=== PATIENT | male | born 1960 | race Caucasian/White ===

== ENCOUNTER 2021-03-22 12:58 | Outpatient (CLI) | payer SELFPAY ==
[~2021-03-22] VITALS: Ht 190.5 cm; Wt 95.5 kg
[2021-03-22 13:05] VITALS: BP 146/82
[2021-03-22 15:48] LABS: AMYLASE,BODY FLUID 10 U/L; TOTAL PROTEIN,BODY FLUID 1.6 G/DL
[2021-03-22 15:51] LABS: LDH,BODY FLUID 65 U/L
[2021-03-22 17:34] LABS: BODY FLUID APPEARENCE MOD CLDY; BODY FLUID COLOR YELLOW; BODY FLUID SOURCE PERITON
[2021-03-22 17:35] LABS: BF OTHER CELLS 52 %; BODY FLUID RBC COUNT 1800 /uL; BODY FLUID WBC TOTAL COUNT 38 /uL; LYMPHOCYTES,BODY FLUID 27 %
--- NOTE | 2021-03-22 18:33 | OPERATIVE REPORT ---
DATE OF SERVICE: 03/22/2021 ATTENDING PRIMARY CARE PHYSICIAN: Rachna Grier MD PREOPERATIVE DIAGNOSIS: Symptomatic ascites. POSTOPERATIVE DIAGNOSIS: Symptomatic ascites. PROCEDURE: Paracentesis under ultrasound guidance. SURGEON: Jes Pierce MD ANESTHESIA: Local. ESTIMATED BLOOD LOSS: Minimal. FINDINGS: A straw yellow transudative fluid. DISPOSITION: The patient tolerated the procedure well. INDICATIONS: The patient is a 60-year-old male, who presented to his physician's office with significant abdominal distention, which has been occurring for the past few weeks. He was also found to have significant skin jaundice as well as scleral icterus and labs were drawn, which did show an elevation of total bilirubin around 7.5. An ultrasound was performed and marked where a significant amount of ascites was located. However, the liver did show macronodular changes consistent with liver cirrhosis. Upon further questioning, he does report drinking on a daily basis for the past 40 years. DESCRIPTION OF PROCEDURE: The abdomen was prepped and draped in standard surgical fashion. A 1% lidocaine was used to anesthetize the skin, subcutaneous tissue, muscle layers as well as the peritoneal lining. A vertical skin incision was made using 11 blade and the catheter and trocar were then introduced withdrawing of straw yellow transudative fluid. Catheter was then advanced over the trocar and the trocar removed. The catheter was then connected to tubing and to a gravity drainage bag. The catheter was then cleaned and covered with gauze followed by Op-Site. Fluid was sent for cytology as well as laboratory panel. The patient tolerated the procedure well. Once the patient is significantly less symptomatic. We will instruct the staff to remove the catheter and to apply Dermabond to the wound. We will then await the labs as well as cytology results. Job ID: [id number] DocumentID: [id number] Dictated Date: 03/22/2021 14:09:57 Private Investigator Date: 03/22/2021 18:32:17 Dictated By: JES PIERCE MD
--- NOTE | 2021-03-22 20:44 | OPERATIVE REPORT ---
DATE OF SERVICE: 03/22/2021 ATTENDING PRIMARY CARE PHYSICIAN: Dr. Rachna Grier. PREPROCEDURE DIAGNOSIS: Symptomatic ascites. POSTPROCEDURE DIAGNOSIS: Symptomatic ascites. PROCEDURE: Paracentesis under ultrasound guidance. SURGEON: Jes Pierce MD ANESTHESIA: Local. ESTIMATED BLOOD LOSS: Minimal. FINDINGS: Approximately 6 liters of transudative fluid. DISPOSITION: The patient tolerated the procedure well. INDICATIONS: The patient is a 60-year-old male who presented to [facility] with abdominal distention and pain and was found to have ascites on ultrasound and marked. He was then seen in the office and scheduled for a paracentesis. He does have a long history of alcohol abuse and does drink several drinks on a daily basis for the past 40 years. The marking it was in the right lower abdominal quadrant and the abdomen was prepped and draped in standard surgical fashion. Skin, subcutaneous tissue, muscle layers as well as the peritoneal lining were anesthetized using 1% lidocaine. A vertical skin incision was made using an 11 blade and the trocar and catheter were then introduced withdrawing of yellow transudative fluid. The catheter was then advanced over the trocar connected to tubing and gravity drainage bag with copious amounts of drainage. The catheter was then cleaned and covered with sterile gauze followed by large Op-Site. The patient tolerated the procedure well. We will continue the drainage until patient is less symptomatic and decompressed and the catheter will then be removed. Job ID: [id number] DocumentID: [id number] Dictated Date: 03/22/2021 17:41:33 Sole Ruffer Date: 03/22/2021 20:42:59 Dictated By: JES PIERCE MD
== END 2021-03-22 15:05 | disposition home or self-care (01) ==
LOC: SDC 12:58
PROVIDERS: ATTEND Surgery
DX: R18.8 Other ascites (principal)
CPT/HCPCS: 49082; 82150; 83615; 84157; 87070; 87075; 87205; 89051

== ENCOUNTER 2021-04-05 10:52 | Outpatient (CLI) | payer SELFPAY ==
[2021-04-05 11:00] VITALS: BP 130/66
--- NOTE | 2021-04-05 13:15 | Progress Note-Post Operative ---
Post-Operative Progess Note Surgeon (s)/Respiratory Therapist (s) Surgeon FLORIN FREGOSO DO Respiratory Therapist: none Pre-Operative Diagnosis Ascites Post-Operative Diagnosis same Procedure & Operative Findings Date of Procedure 04/05/21 Procedure Performed/Findings Paracentesis with US The patient was in same day surgery room. The abdomen was then prepped and draped and timeout was performed. I used the US to make sure there was a large pocket of fluid in the LLQ. Local anesthetic was then infiltrated and #11 blade scalpel was used to make a small skin incision. [id number]-[id number] needle and catheter were then advanced until straw-colored fluid was withdrawn. The catheter was advanced and the needle was removed. A total of 4.5 L of straw-colored fluid was withdrawn. Once done draining, the catheter was removed and sterile bandage was applied. The patient tolerated procedure well without any complications. Anesthesia Type local lidocaine Estimated Blood Loss Estimated blood loss (mL): none Specimens/Packing Specimens Removed ascitic fluid FLORIN FREGOSO DO Apr 05, 2021 13:15
== END 2021-04-05 12:30 | disposition home or self-care (01) ==
LOC: SDC 10:52
PROVIDERS: ATTEND Surgery
DX: R18.8 Other ascites (principal)
CPT/HCPCS: 49082

== ENCOUNTER 2021-04-15 12:10 | Outpatient (CLI) | payer SELFPAY ==
[2021-04-15 13:30] VITALS: BP 140/82
--- NOTE | 2021-04-15 15:26 | Progress Note-Post Operative ---
Post-Operative Progess Note Surgeon (s)/Time Study Technologist (s) Surgeon FLORIN FREGOSO DO Time Study Technologist: none Pre-Operative Diagnosis Ascites Post-Operative Diagnosis same Procedure & Operative Findings Date of Procedure 04/15/21 Procedure Performed/Findings Paracentesis with US The patient was in same day surgery room. The abdomen was then prepped and draped and timeout was performed. I used the US to make sure there was a large pocket of fluid in the LLQ. Local anesthetic was then infiltrated and #11 blade scalpel was used to make a small skin incision. [id number]-[id number] needle and catheter were then advanced until straw-colored fluid was withdrawn. The catheter was advanced and the needle was removed. A total of 4.3 L of straw-colored fluid was withdrawn. Once done draining, the catheter was removed and sterile bandage was applied. The patient tolerated procedure well without any complications. Anesthesia Type Local lidocaine Estimated Blood Loss Estimated blood loss (mL): scant Specimens/Packing Specimens Removed 4300ml of Ascitic fluid FLORIN FREGOSO DO Apr 15, 2021 15:26
== END 2021-04-15 14:00 ==
LOC: SDC 12:10
PROVIDERS: ATTEND Surgery
DX: R18.8 Other ascites (principal)
CPT/HCPCS: 49082

== ENCOUNTER 2021-05-24 10:54 | Emergency (ER) | payer SELFPAY ==
[~2021-05-24] VITALS: Ht 185 cm; Wt 62.0 kg
[2021-05-24] MEDS ORDERED: NS IV 1000 ML 1,000 ML IV SCH ×2 (11:15→18:45)
--- NOTE | 2021-05-24 11:18 | ED Neurological Problem ---
General Stated Complaint: AMS Source: patient, spouse Exam Limitations: no limitations History of Present Illness Date Seen by Provider: May 24, 2021 Time Seen by Provider: 11:00 Initial Comments Patient to the ER by EMS from home with chief complaint of altered mental status, jaundice and history of liver failure. His states for the past several months he is known to have alcoholism derived hepatic failure and has been jaundiced. He has some more testing to be initiated by a GI doctor at in July. He has had 3 paracentesis in the recent past. He is on lactulose but not as rifaximin. No fevers or chills. He took an aspirin this morning in addition to his fluoxetine, furosemide for pain across the top of his belly. No history of pancreatitis. He used to drink about 1/5 of vodka a day but he quit in March. He does not use recreational drugs. No history of pancreatitis. No lactulose today. He had a last bowel movement yesterday. He is never been hospitalized for encephalopathy. He is typically ambulating under his own power, conversational, etc. Known to DR Zeinab INFANTE at [facility]. Allergies and Home Medications Allergies Coded Allergies: No Known Drug Allergies (Unverified , 05/24/21) Patient Home Medication List Home Medication List Reviewed: Yes Review of Systems Review of Systems Constitutional: No chills, No diaphoresis Eyes: Denies Blindness, Denies Blurred Vision Ears, Nose, Mouth, Throat: denies ear pain, denies ear discharge Respiratory: No cough, No short of breath Cardiovascular: No chest pain, No edema Gastrointestinal: abdominal pain; No constipation, No diarrhea; jaundice; No nausea, No vomiting Genitourinary: No discharge, No dysuria Musculoskeletal: No back pain, No joint pain All Other Systems Reviewed Negative Unless Noted: Yes Past Hlfobgj-Hcipvk-Nzwnlu Hx Patient Social History Tobacco Use?: No Use of E-Cig and/or Vaping dev: No Substance use?: No Alcohol Use?: Yes Alcohol type: Hard Liquor (Quit in March 2021) Physical Exam Vital Signs Vital Signs - First Documented 05/24/21 11:02 Temp 36.9 Pulse 102 Resp 18 B/P (MAP) 130/64 (86) Pulse Ox 100 Capillary Refill : Height, Weight, BMI Height: '" Weight: lbs. oz. kg; BMI Method: General Appearance: WD/WN, moderate distress HEENT: PERRL/EOMI (4 mm, icteric, symmetric bilateral), TMs normal, pharynx normal Respiratory: lungs clear, normal breath sounds, no respiratory distress, no accessory muscle use Cardiovascular: normal peripheral pulses, regular rate, rhythm Gastrointestinal: normal bowel sounds, non tender, soft Extremities: non-tender, normal inspection, normal capillary refill Neurologic/Psychiatric: alert, normal mood/affect, other (GCS 13) Crainal Nerves: PERRL, other (Icteric, repeats sentences over, does not answer many questions. Is oriented to self only.) Motor/Sensory: no motor deficit, no sensory deficit Skin: warm/dry, jaundice Focused Exam Lactate Level 05/24/21 17:00: Lactic Acid Level 7.53*H Lactic Acid Level Laboratory Tests Test 05/24/21 17:00 Lactic Acid Level 7.53 MMOL/L (0.50-2.00) *H Progress/Results/Core Measures Results/Orders Lab Results Laboratory Tests Test 05/24/21 11:10 05/24/21 11:30 05/24/21 16:29 05/24/21 17:00 Range/Units White Blood Count 7.3 4.3-11.0 10^3/uL Red Blood Count 1.93 L 4.30-5.52 10^6/uL Hemoglobin 7.3 L 13.3-17.7 g/dL Hematocrit 21 L 40-54 % Mean Corpuscular Volume 110 H 80-99 fL Mean Corpuscular Hemoglobin 38 H 25-34 pg Mean Corpuscular Hemoglobin Concent 34 32-36 g/dL Red Cell Distribution Width 16.3 H 10.0-14.5 % Platelet Count 175 130-400 10^3/uL Mean Platelet Volume 9.0 9.0-12.2 fL Immature Granulocyte % (Auto) 1 % Neutrophils (%) (Auto) 69 42-75 % Lymphocytes (%) (Auto) 18 12-44 % Monocytes (%) (Auto) 10 0-12 % Eosinophils (%) (Auto) 1 0-10 % Basophils (%) (Auto) 1 0-10 % Neutrophils # (Auto) 5.0 1.8-7.8 10^3/uL Lymphocytes # (Auto) 1.3 1.0-4.0 10^3/uL Monocytes # (Auto) 0.8 0.0-1.0 10^3/uL Eosinophils # (Auto) 0.0 0.0-0.3 10^3/uL Basophils # (Auto) 0.1 0.0-0.1 10^3/uL Immature Granulocyte # (Auto) 0.1 0.0-0.1 10^3/uL Prothrombin Time 21.6 H 12.2-14.7 SEC INR Comment 1.8 H 0.8-1.4 Activated Partial Thromboplast Time 52 H 24-35 SEC Sodium Level 133 L 135-145 MMOL/L Potassium Level 4.1 3.6-5.0 MMOL/L Chloride Level 107 98-107 MMOL/L Carbon Dioxide Level 11 L 21-32 MMOL/L Anion Gap 15 H 5-14 MMOL/L Blood Urea Nitrogen 28 H 7-18 MG/DL Creatinine 1.01 0.60-1.30 MG/DL Estimat Glomerular Filtration Rate 85 BUN/Creatinine Ratio 28 Glucose Level 116 H 70-105 MG/DL Calcium Level 8.7 8.5-10.1 MG/DL Corrected Calcium 9.7 8.5-10.1 MG/DL Total Bilirubin 12.1 *H 0.1-1.0 MG/DL Aspartate Amino Transf (AST/SGOT) 69 H 5-34 U/L Alanine Aminotransferase (ALT/SGPT) 24 0-55 U/L Alkaline Phosphatase 108 40-136 U/L Ammonia 103 H 11-32 UMOL/L C-Reactive Protein High Sensitivity 3.27 H 0.00-0.50 MG/DL Total Protein 7.3 6.4-8.2 GM/DL Albumin 2.7 L 3.2-4.5 GM/DL Lipase 111 H 8-78 U/L Salicylates Level < 5.0 L 5.0-20.0 MG/DL Acetaminophen Level < 10 L 10-30 UG/ML Serum Alcohol < 10 <10 MG/DL Urine Color YELLOW Urine Clarity CLEAR Urine pH 6.5 5-9 Urine Specific [place] 1.015 L 1.016-1.022 Urine Protein NEGATIVE NEGATIVE Urine Glucose (UA) NEGATIVE NEGATIVE Urine Ketones NEGATIVE NEGATIVE Urine Nitrite NEGATIVE NEGATIVE Urine Bilirubin 1+ H NEGATIVE Urine Urobilinogen >=8.0 < = 1.0 MG/DL Urine Leukocyte Esterase NEGATIVE NEGATIVE Urine RBC (Auto) NEGATIVE NEGATIVE Urine RBC NONE /HPF Urine WBC NONE /HPF Urine Squamous Epithelial Cells RARE /HPF Urine Crystals NONE /LPF Urine Bacteria NEGATIVE /HPF Urine Casts NONE /LPF Urine Mucus NEGATIVE /LPF Urine Culture Indicated NO Urine Opiates Screen NEGATIVE NEGATIVE Urine Oxycodone Screen NEGATIVE NEGATIVE Urine Methadone Screen NEGATIVE NEGATIVE Urine Propoxyphene Screen NEGATIVE NEGATIVE Urine Barbiturates Screen NEGATIVE NEGATIVE Ur Tricyclic Antidepressants Screen NEGATIVE NEGATIVE Urine Phencyclidine Screen NEGATIVE NEGATIVE Urine Amphetamines Screen NEGATIVE NEGATIVE Urine Methamphetamines Screen NEGATIVE NEGATIVE Urine Benzodiazepines Screen NEGATIVE NEGATIVE Urine Cocaine Screen NEGATIVE NEGATIVE Urine Cannabinoids Screen NEGATIVE NEGATIVE Influenza Type A (RT-PCR) Not Detected Not Detecte Influenza Type B (RT-PCR) Not Detected Not Detecte SARS-CoV-2 RNA (RT-PCR) Not Detected Not Detecte Lactic Acid Level 7.53 *H 0.50-2.00 MMOL/L My Orders Orders - GONSALO BLUM Cbc With Automated Diff (05/24/21 11:08) Comprehensive Metabolic Panel (05/24/21 11:08) Hs C Reactive Protein (05/24/21 11:08) Lipase (05/24/21 11:08) Ua Culture If Indicated (05/24/21 11:08) Drug Screen Stat (Urine) (05/24/21 11:08) Alcohol (05/24/21 11:08) Acetaminophen (05/24/21 11:08) Salicylate (05/24/21 11:08) Chest 1 View, Ap/Pa Only (05/24/21 11:08) Ammonia (05/24/21 11:08) Ed Iv/Invasive Line Start (05/24/21 11:10) Ns Iv 1000 Ml (Sodium Chloride 0.9%) (05/24/21 11:15) Accucheck Stat ONCE (05/24/21 11:11) Ekg Tracing (05/24/21 11:11) Continuous Ekg Monitoring (05/24/21 11:11) Pantoprazole Injection (Protonix Injecti (05/24/21 11:30) Catheter(Urinary) Insert & Ass 03,15 (05/24/21 11:18) Droperidol Inj (Ed Only) (Inapsine Inj ( (05/24/21 11:29) Restraints: Medically Indicate Q2H (05/24/21 11:37) Diphenhydramine Injection (Benadryl Inje (05/24/21 12:36) Haloperidol Injection (Haldol Injectio (05/24/21 12:36) Diphenhydramine Injection (Benadryl Inje (05/24/21 13:00) Haloperidol Injection (Haldol Injectio (05/24/21 13:00) Protime With Inr (05/24/21 13:01) Partial Thromboplastin Time (05/24/21 13:01) Benztropine Injection (Cogentin Injectio (05/24/21 14:00) Benztropine Injection (Cogentin Injectio (05/24/21 15:45) Blood Culture (05/24/21 16:01) Lactated Ringers (Lr 1000 Ml Iv Solution (05/24/21 16:15) Ct Head Wo (05/24/21 16:19) Lactic Acid Analyzer (05/24/21 16:19) Covid 19 Inhouse Test (05/24/21 16:22) Influenza A And B By Pcr (05/24/21 16:22) Ns Iv 1000 Ml (Sodium Chloride 0.9%) (05/24/21 18:29) Medications Given in ED Current Medications Medications Dose Ordered Sig/Madhav Route Start Time Stop Time Status Last Admin Dose Admin Benztropine Mesylate 1 mg ONCE ONCE IM 05/24/21 14:00 05/24/21 14:01 DC 05/24/21 14:20 1 MG Benztropine Mesylate 1 mg ONCE ONCE IM 05/24/21 15:45 05/24/21 15:46 DC 05/24/21 16:30 1 MG Diphenhydramine HCl 50 mg STK-MED ONCE .ROUTE 05/24/21 12:36 05/24/21 12:40 DC 05/24/21 12:38 50 MG Droperidol 5 mg STK-MED ONCE .ROUTE 05/24/21 11:29 05/24/21 11:31 DC 05/24/21 11:30 1.5 MG Haloperidol Lactate 5 mg STK-MED ONCE .ROUTE 05/24/21 12:36 05/24/21 12:40 DC 05/24/21 12:39 5 MG Pantoprazole 40 mg ONCE ONCE IV 05/24/21 11:30 05/24/21 11:31 DC 05/24/21 11:51 40 MG Vital Signs/I&O 05/24/21 11:02 Temp 36.9 Pulse 102 Resp 18 B/P (MAP) 130/64 (86) Pulse Ox 100 Progress Progress Note #1: Time: 11:25 Progress Note Suspect he is in fulminant hepatic failure with elevated ammonia levels. Will check some labs give him a liter of fluids and look for signs of infection. It is CT of his abdomen and pelvis with IV contrast preferably since he is having some upper abdomen pain to look for pancreatitis etc. Progress Note #2: Time: 13:02 Progress Note Return to keep from putting him in restraints so he gave him some droperidol because he was swinging at nurses. His is sitting in there and redirecting/distracting him. He is quite delirious due to his elevated ammonia. Put in a phone call to medicine team and see if they are willing to keep him here or want to send him out where GI is available. We did place a Hawley catheter in him. PT/INR/PTT are still pending. Another Haldol 5 mg and Benadryl 25 mg IV were given because he was getting more restless and trying to crawl out of bed and yank lines out despite a sitter. Progress Note #3: Time: 14:52 Progress Note Patient is resting comfortably. Was having some restless leg movement so we gave him a milligram of Cogentin which helped. Meld score 26 points. Plan to get [facility] involved. Initial ECG Impression Date: May 24, 2021 Initial ECG Impression Time: 11:21 Initial ECG Rate: 89 Initial ECG Rhythm: Normal Sinus Initial ECG Intervals: QT (513) Initial ECG Impression: Normal Comment Normal sinus rhythm without clinically relevant ST elevation or depression. Diagnostic Imaging Diagonstic Imaging: Xray Plain Films/CT/US/NM/MRI: chest Comments [facility] [place] NAME: [facility] REC#: [id number] PT STATUS: REG ER : 1960 PHYSICIAN: GONSALO BLUM MD ADMIT DATE: 05/24/21/ER Signed Date of Exam:05/24/21 CHEST 1 VIEW, AP/PA ONLY EXAMINATION: Chest, one view. HISTORY: Altered mental status. COMPARISON: None available. FINDINGS: Heart size and pulmonary vasculature are normal. The lungs are clear without consolidation, pleural effusion, or pneumothorax. Degenerative changes of the thoracic spine. Osseous structures are otherwise intact. IMPRESSION: 1. No acute radiographic abnormality in the chest. Dictated by: Dictated on workstation # [id number] Dict: 05/24/21 1216 Trans: 05/24/211217 [id number] Interpreted by: NEHA JOSHUA DO Electronically signed by: NEHA JOSHUA DO 05/24/211217 Reviewed: Reviewed by Nm Diagonstic Imaging: CT Plain Films/CT/US/NM/MRI: head Comments [facility] [place] [place] NAME: [facility] REC#: [id number] PT STATUS: REG ER : 1960 PHYSICIAN: GONSALO BLUM MD ADMIT DATE: 05/24/21/ER Signed Date of Exam:05/24/21 CT HEAD WO PROCEDURE: CT head without contrast. TECHNIQUE: Multiple contiguous axial images were obtained through the brain without the use of intravenous contrast. Auto Exposure Controls were utilized during the CT exam to meet ALARA standards for radiation dose reduction. INDICATION: Altered mental status. FINDINGS: There is prominence of the ventricles and sulci. There is no hydrocephalus or cerebral edema. There is no midline shift or mass-effect. There is no intracranial mass, hemorrhage, or extra-axial fluid collection. There is some diffuse decreased attenuation of the periventricular white matter which is nonspecific. The visualized paranasal sinuses and mastoid air cells are clear. There are no regional areas of decreased attenuation appreciated to suggest an acute CVA. IMPRESSION: 1. No acute intracranial process. 2. Age-appropriate atrophy. 3. Decreased attenuation of the periventricular white matter which is nonspecific, however, likely reflects senescent change and/or chronic small vessel ischemic disease. Dictated by: Dictated on workstation # [id number] Dict: 05/24/21 1724 Trans: 05/24/21 172 [id number] [id number] Interpreted by: MALIK MERINO MD Electronically signed by: MALIK MERINO MD 05/24/21 2826 Reviewed: Reviewed by Me Departure Impression Primary Impression: Acute hepatic encephalopathy Disposition: 02 XFER SHT-TRM HOSP Condition: Stable Transfer Transfer Reason: Exceeds level of care Time Spoke to Accepting Phy: 17:30 Transfer Progress Notes 1440: Spoke to triage team at [facility] and they will call us back with a provider. 1600: Discussed the case with Dr. Ayala, crosstie inspector at [facility]. Unfortunately ER at capacity would not be able to take the patient today. They did make recommendations and encouraged transfer to a separate regional facility or try again tomorrow. He recommended 3-4 bowel movements a day using lactulose and rifaximin 550 mg twice daily. Avoid benzos altogether. Be extremely hesitant to use the Haldol or Benadryl. Intubate as needed for inability to protect airway. 1605: [place] Triage; 1730: Accepted by Dr. Maldonado at [facility] [place], [place] awaiting bed assignment. Transfer Facility: [place], [place] Method of Transfer: EMS Departure-Patient Inst. Referrals: DENAE LUCERO MD (PCP/Family) Primary Care Physician GONSALO BLUM May 24, 2021 11:18
[2021-05-24 11:28] LABS: BASOPHILS # (AUTO) 0.1 10^3/uL (0.0-0.1); BASOPHILS % (AUTO) 1 % (0-10); EOSINOPHILS % (AUTO) 1 % (0-10); HEMATOCRIT 21 % (40-54); HEMOGLOBIN 7.3 g/dL (13.3-17.7); LYMPHOCYTES # (AUTO) 1.3 10^3/uL (1.0-4.0); LYMPHOCYTES % (AUTO) 18 % (12-44); MEAN CORPUSCULAR HEMOGLOBIN 38 pg (25-34); MEAN CORPUSCULAR HGB CONC 34 g/dL (32-36); MEAN CORPUSCULAR VOLUME 110 fL (80-99); MONOCYTES # (AUTO) 0.8 10^3/uL (0.0-1.0); MONOCYTES % (AUTO) 10 % (0-12); NEUTROPHILS % (AUTO) 69 % (42-75); PLATELET COUNT 175 10^3/uL (130-400); WHITE BLOOD COUNT 7.3 10^3/uL (4.3-11.0)
[2021-05-24] MEDS ORDERED: DROPERIDOL 5 MG/2 ML (INAPSINE) ED ONLY! ONE (11:29)
[2021-05-24] MEDS ORDERED: PANTOPRAZOLE 40 MG (PROTONIX) VIAL IV ONE (11:30)
[2021-05-24 11:39] LABS: ALBUMIN 2.7 GM/DL (3.2-4.5); CHLORIDE 107 MMOL/L (98-107); POTASSIUM 4.1 MMOL/L (3.6-5.0); SODIUM 133 MMOL/L (135-145)
[2021-05-24 11:40] LABS: CALCIUM 8.7 MG/DL (8.5-10.1)
[2021-05-24 11:41] LABS: AMMONIA 103 UMOL/L (11-32)
[2021-05-24 11:41] LABS: CLARITY,URINE CLEAR; COLOR,URINE YELLOW; GLUCOSE, URINE (UA) NEGATIVE (NEGATIVE); KETONES,URINE NEGATIVE (NEGATIVE); LEUKOCYTE ESTERASE ,URINE NEGATIVE (NEGATIVE); NITRITE,URINE NEGATIVE (NEGATIVE); PH,URINE 6.5 (5-9); PROTEIN,URINE NEGATIVE (NEGATIVE)
[2021-05-24 11:42] LABS: GLUCOSE 116 MG/DL (70-105); TOTAL PROTEIN 7.3 GM/DL (6.4-8.2)
[2021-05-24 11:43] LABS: CARBON DIOXIDE 11 MMOL/L (21-32)
[2021-05-24 11:46] LABS: ALKALINE PHOSPHATASE 108 U/L (40-136); CREATININE SERUM 1.01 MG/DL (0.60-1.30); GFR ESTIMATED 85
[2021-05-24 11:47] LABS: BUN/CREATININE RATIO 28
[2021-05-24 11:48] LABS: SALICYLATE < 5.0 MG/DL (5.0-20.0)
[2021-05-24 11:49] LABS: ALANINE AMINOTRANSFERASE 24 U/L (0-55); LIPASE 111 U/L (8-78)
[2021-05-24 11:52] LABS: ACETAMINOPHEN < 10 UG/ML (10-30)
[2021-05-24 11:54] LABS: BILIRUBIN,TOTAL 12.1 MG/DL (0.1-1.0)
[2021-05-24 11:55] LABS: AMPHETAMINE SCREEN, URINE NEGATIVE (NEGATIVE); BARBITURATE SCREEN URINE NEGATIVE (NEGATIVE); BENZODIAZEPINES SCREEN URINE NEGATIVE (NEGATIVE); CANNABINOID SCREEN, URINE NEGATIVE (NEGATIVE); COCAINE SCREEN URINE NEGATIVE (NEGATIVE); METHADONE STAT NEGATIVE (NEGATIVE); METHAMPHETAMINE SCREEN URINE S NEGATIVE (NEGATIVE); OPIATE SCREEN URINE NEGATIVE (NEGATIVE); OXYCODONE STAT NEGATIVE (NEGATIVE); PROPOXYPHENE STAT NEGATIVE (NEGATIVE); TRICYCLIC ANTIDEPRESSANTS SCRE NEGATIVE (NEGATIVE)
[2021-05-24 11:58] LABS: BILIRUBIN,URINE 1+ (NEGATIVE)
[2021-05-24 11:59] LABS: BACTERIA,URINE NEGATIVE /HPF; SQUAMOUS EPITHELIAL CELL,UR RARE /HPF
--- NOTE | 2021-05-24 12:18 | Diagnostic Imaging Report ---
EXAMINATION: Chest, one view. HISTORY: Altered mental status. COMPARISON: None available. FINDINGS: Heart size and pulmonary vasculature are normal. The lungs are clear without consolidation, pleural effusion, or pneumothorax. Degenerative changes of the thoracic spine. Osseous structures are otherwise intact. IMPRESSION: 1. No acute radiographic abnormality in the chest. Dictated by: Dictated on workstation # [id number]
[2021-05-24] MEDS ORDERED: HALOPERIDOL 5 MG/ML (HALDOL) VIAL ONE (12:36)
[2021-05-24] MEDS ORDERED: diphenhydrAMINE 50 MG/ML INJ (BENADRYL) ONE (12:36)
[2021-05-24] MEDS ORDERED: HALOPERIDOL 5 MG/ML (HALDOL) VIAL IV ONE (13:00)
[2021-05-24] MEDS ORDERED: diphenhydrAMINE 50 MG/ML INJ (BENADRYL) IVP ONE (13:00)
[2021-05-24 13:16] LABS: INR 1.8 (0.8-1.4); PROTHROMBIN TIME PATIENT 21.6 SEC (12.2-14.7)
[2021-05-24] MEDS ORDERED: BENZTROPINE 2 MG/2 ML INJ (COGENTIN) AMP IM ONE ×2 (14:00→15:45)
[2021-05-24] MEDS ORDERED: LACTATED RINGERS 1,000 ML IV SCH (16:15)
--- NOTE | 2021-05-24 17:26 | Diagnostic Imaging Report ---
PROCEDURE: CT head without contrast. TECHNIQUE: Multiple contiguous axial images were obtained through the brain without the use of intravenous contrast. Auto Exposure Controls were utilized during the CT exam to meet ALARA standards for radiation dose reduction. INDICATION: Altered mental status. FINDINGS: There is prominence of the ventricles and sulci. There is no hydrocephalus or cerebral edema. There is no midline shift or mass-effect. There is no intracranial mass, hemorrhage, or extra-axial fluid collection. There is some diffuse decreased attenuation of the periventricular white matter which is nonspecific. The visualized paranasal sinuses and mastoid air cells are clear. There are no regional areas of decreased attenuation appreciated to suggest an acute CVA. IMPRESSION: 1. No acute intracranial process. 2. Age-appropriate atrophy. 3. Decreased attenuation of the periventricular white matter which is nonspecific, however, likely reflects senescent change and/or chronic small vessel ischemic disease. Dictated by: Dictated on workstation # [id number]
[2021-05-24] MEDS ORDERED: NS IV 1000 ML 1,000 ML ONE (18:29)
[2021-05-24 22:00] VITALS: BP 145/58
== END 2021-05-24 22:01 | disposition short-term general hospital (02) ==
LOC: EDUNIT# 10:54 → ER 11:03
DX: K72.00 Acute and subacute hepatic failure without coma (principal); Z20.822 Contact with and (suspected) exposure to COVID-19
CPT/HCPCS: 51702; 70450; 71045; 80053; 80306; 81000; 82140; 83605; 83690; 85025; 85610; 85730; 86141; 87040; 87636; 93005; 99284; G0480 ×3; 36415; 80320; 80329